=== PATIENT | male | born 1980 | race Two or more races ===

== ENCOUNTER 2016-04-04 17:43 | Emergency (ER) | payer SELFPAY ==
[~2016-04-04] VITALS: Ht 172.7 cm; Wt 77.1 kg
[~2016-04-04 17:43] MED LIST: BACITRACIN15 GM TOPIC; IBUPROFEN600 MG ORAL; NKM; UNOBMED
[2016-04-04 18:25] VITALS: BP 148/72
--- NOTE | 2016-04-04 18:27 | Emergency Room Report ---
History of Present Illness General Chief Complaint: General Complaint Source: Patient, Medical Record Present Illness HPI Patient presents with complaints of being found altered there was a report of patient taking methadone Patient's glucose was also 55 Patient was given dextrose Her initially the patient was extremely somnolent unresponsive to questioning however after verbalizing that he would be receiving Narcan The patient became verbally responsive and states that he does not want to receive Narcan He states that when he gets that medicine he has extreme pain At this time denies any chest pain shortness of breath denies any back or flank pain Allergies: Coded Allergies: PENICILLINS (Unverified Allergy, Intermediate, 01/12/16) Patient History Past Medical History: see triage record Pertinent Family History: none Reviewed Nursing Documentation: PMH: Agreed, PSxH: Agreed Nursing Documentation-PMH Past Medical History: No History, Except For Hx Seizures: Yes Review of Systems All Other Systems: negative except mentioned in HPI Physical Exam Vital Signs Date Time Temp Pulse Resp B/P Pulse Ox O2 Delivery O2 Flow Rate FiO2 04/04/16 17:42 96.3 74 20 148/72 99 Room Air Sp02 EP Interpretation: reviewed, normal General Appearance: other - Initially somewhat somnolent however patient has become awake alert Head: normocephalic, atraumatic Eyes: bilateral eye EOMI, bilateral eye PERRL ENT: hearing grossly normal, normal pharynx, TMs + canals normal, uvula midline Neck: full range of motion, supple, no meningismus, no bony tend Respiratory: lungs clear, normal breath sounds, no rhonchi, no respiratory distress, no retraction, no accessory muscle use Cardiovascular #1: normal peripheral pulses, regular rate, rhythm, no edema, no gallop, no JVD, no murmur Gastrointestinal: normal bowel sounds, non tender, soft, no mass, no organomegaly, non-distended, no guarding, no hernia, no pulsatile mass, no rebound Musculoskeletal: normal inspection Neurologic: oriented x3 - Please note that the patient initially on presentation was somnolent, difficult to arouse however has become GCS 15 and appropriate throughout his stay, , responsive, airplane patroller III-XII nml as tested, motor strength/tone normal, sensory intact Psychiatric: mood/affect normal Skin: other - Somewhat disheveled Lymphatic: normal inspection, no adenopathy Medical Decision Making Diagnostic Impression: Primary Impression: Drug abuse Additional Impression: Altered mental state ER Course Initially the patient was discussed regarding receiving Narcan while he was still unresponsive, after verbal discussion the patient opened his eyes and states that he does not want to receive that medicine Patient states that he takes methadone Denies any chest pain or shortness of breath at this time After further observation patient did receive 1 mg of Narcan was observed further patient remains awake and was dispositioned for close outpatient followup Last Vital Signs Date Time Temp Pulse Resp B/P Pulse Ox O2 Delivery O2 Flow Rate FiO2 04/04/16 17:42 96.3 74 20 148/72 99 Room Air Status: improved Disposition: HOME, SELF-CARE Condition: Improved Additional Instructions: Patient is provided with the discharge instructions notified to follow up with primary doctor in the next 2-3 days otherwise return to the er with any worsening symptoms. PRICILA NASCIMENTO D.O. Apr 04, 2016 18:27
[2016-04-04] MEDS ORDERED: Naloxone 1mg/ml 2ml IM ONE (19:45)
[2016-04-04 20:23] VITALS: BP 148/72
== END 2016-04-04 20:24 | disposition home or self-care (01) ==
LOC: EDBD 17:43 → EMR 19:50
DX: F15.10 Other stimulant abuse, uncomplicated (principal); R41.82 Altered mental status, unspecified; Z88.0 Allergy status to penicillin
CPT/HCPCS: 96372; 99283; J2310